=== PATIENT | male | born 2000 | race Caucasian/White ===

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

== ENCOUNTER 2024-06-15 18:10 | Emergency (ER) | payer BC, SELFPAY ==
[2024-06-15 18:11] VITALS: BP 134/85; PULSE 62; RESP 17; TEMP 36.4; O2SAT 100
--- NOTE | 2024-06-15 18:30 | RAD_ITS ---
INDICATION: Laceration EXAMINATION/TECHNIQUE: X-RAY - RIGHT XR Hand Min 3 Views 3 VIEWS COMPARISON: No relevant prior comparison study available FINDINGS: SOFT TISSUES: There are areas of soft tissue gas/air along the dorsum of the hand consistent with a history of laceration. No radiopaque foreign body. BONES/JOINTS: No acute fracture or subluxation.. Normal alignment. Preservation of the joint space.. No sclerotic or destructive changes observed. RAD/Hand Min 3 Views IMPRESSION: 1. No evidence fracture, malalignment or focal bony or joint space abnormality. 2. Soft tissue gas on the dorsum of the hand consistent with history of laceration. No radiopaque foreign bodies noted. No acute bony changes. Electronically Signed: Aashish Otero MD at 19:31 EDT ,
[2024-06-15 20:10] VITALS: BP 138/67; PULSE 88; RESP 16; O2SAT 100
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
[2024-06-15] MEDS: Lidocaine 1% (20 ml mdv) 20 ML Vial INFILT (21:12)
[2024-06-15] MEDS: Cefazolin 1 GM/50 ML BAG IV (21:23)
[2024-06-15 22:00] VITALS: BP 124/79; PULSE 67; RESP 18; O2SAT 95
[2024-06-15 23:46] VITALS: BP 133/83; PULSE 67; RESP 18; TEMP 36.8; O2SAT 96
== END 2024-06-15 23:49 | disposition home or self-care (01) ==
PROVIDERS: Emergency Provider Emergency Medicine; PCP Family Medicine; Visit Provider Emergency Medicine
DX: S66.921A Laceration of unspecified muscle, fascia and tendon at wrist and hand level, right hand, initial encounter (principal); S61.411A Laceration without foreign body of right hand, initial encounter; X58.XXXA Exposure to other specified factors, initial encounter
CPT/HCPCS: 12004; 29125; 73130; 99285; J7030; A4216

== ENCOUNTER → 2025-01-25 | Outpatient (CLI) | payer BC, SELFPAY | END | disposition home or self-care (01) | LOC: LABSPEC 12:28 | PROVIDERS: PCP Family Medicine; Visit Provider Family Medicine | DX: R30.0 Dysuria (principal) | CPT/HCPCS: 87086; 87088; 87186; 87491; 87591 ==